=== PATIENT | female | born 1940 | race Caucasian/White ===

== ENCOUNTER 2017-10-09 12:59 | Inpatient (IN) | payer OTHER, MEDICAID ==
[~2017-10-09] VITALS: Ht 157.4 cm; Wt 76.8 kg
--- NOTE | ~2017-10-09 | CON ---
[place], [place] REPORT OF CONSULTATION NAME: KE[facility]A FRIEND [facility] #: [id number] UNIT #: [id number] ROOM: 504 DOCTOR: LUKAS AYON MDDOLORES BIRTHDATE: [birth year] DOS: 10/10/2017 CONSULTATION REQUESTED BY: Hospitalist service. REASON FOR CONSULTATION: Assessment of the shortness of breath. HISTORY OF PRESENT ILLNESS: The patient is a 76-year-old white female patient who came into the office yesterday to be seen for preoperative clearance for some surgery of the joint. The patient slipped off the chair and was noted feeling dizzy, did not have any unconsciousness episode. The patient was noted with oxygen desaturation with saturation about 85%. She was started on oxygen supplementation, EMS called and the patient was sent to the hospital Emergency Room where she has been assessed and subsequently admitted to the hospital for medical management. During course of the assessment in Emergency Room, she also underwent CT scan of the head that excluded any stroke for this patient. CT scan of the abdomen and pelvis done as the patient was complaining of some pain, some upper portion of the abdomen. She has reported symptoms of recently for shortness of breath. The patient has been noted without any sputum expectoration. Denies symptoms of chest pain. Denies symptoms of hemoptysis. The patient does have a cough intermittently which was noted, not completely resolved with intermittent wheezing as well. REVIEW OF SYSTEMS: CONSTITUTIONAL SYMPTOMS: She was noted with symptoms of fatigue and tiredness at this time, which is generalized. EYES: Denies any burning, redness, or tenderness. EAR, NOSE, AND THROAT SYMPTOMS: Denies sore throat, hoarseness, or otalgia, postnasal drainage or epistaxis. CARDIOVASCULAR: Denies angina pain, edema, pain of the lower extremities. GASTROINTESTINAL SYMPTOMS: The patient was noted pain in the upper portion of the abdomen, which are noted severe at this time and noted with palpation in the upper portion of the abdomen most likely in anterior abdominal wall. Denies symptoms of nausea, vomiting, diarrhea, hematemesis, melena, or hematochezia. GENITOURINARY: No dysuria, suprapubic pain, or hematuria. MUSCULOSKELETAL: Denies acute joint pain, redness, or tenderness. Noted history of osteoarthritis and pain in the major joints. CENTRAL NERVOUS SYSTEM: General weakness noted without symptoms of tingling sensation. Remaining systems were reviewed, they were noted all negative. PAST MEDICAL HISTORY: Noted with history of: 1. COPD. 2. Chronic hypoxic respiratory failure with intermittent use of oxygen, supposedly be using oxygen with exertion and sleep. 3. Obstructive sleep apnea disorder. 4. Hearing adherent to the treatment. 5. Atrial fibrillation. 6. Essential hypertension. 7. Hyperlipidemia. [place], [place] REPORT OF CONSULTATION NAME: KE[facility]A FRIEND [facility] #: [id number] UNIT #: [id number] ROOM: [facility] DOCTOR: ZEN WHITAKER MDM BIRTHDATE: [birth year] 8. History of past TIA. 9. Cancer of the breast, right side, which was diagnosed in 1995, in remission. PAST SURGICAL HISTORY: 1. Complete hysterectomy. 2. Right knee arthroscopy. 3. Exploratory laparotomy. 4. Hiatal hernia surgery. 5. Rotator cuff surgery bilaterally. 6. Cardiac catheterization. 7. Left carotid endarterectomy. 8. Right breast lumpectomy in 1995. 9. Therapeutic bronchoscopy done in 2015. SOCIAL HISTORY: The patient is , lives at home. Denies history of alcohol use, illicit drug use. She does not have any occupation related exposure to or inhalation to any dust or chemicals. Smoking noted from age of [age] years old, pack of cigarettes per day that was discontinued in 2014. FAMILY HISTORY: Father at 74 years old with complication of lung cancer. Mother at age of 6969 years old with complication of heart disease. MEDICATIONS: Current administered medications noted as use of Lipitor, aspirin, Protonix, Dulera, albuterol sulfate with nebulizer and Atrovent 3-4 times a day, Metoprolol tartrate 25 mg b.i.d., Plavix 20 mg daily, Pradaxa 150 mg p.o. daily, Lasix 40 mg daily, Ranexa 1000 mg p.o. b.i.d., folic acid 1 mg daily, Wellbutrin 10 mg daily, sulfasalazine 500 mg p.o. daily and other p.r.n. medications. DRUG ALLERGIES: No known drug allergies. PHYSICAL EXAMINATION: GENERAL: This is a 76-year-old female who has been currently noted awake and alert without any acute distress at this time. Height of 5 feet 2 inches, weight of 160 pounds, BMI 29. VITAL SIGNS: Normal temperature, respiratory recorded 18-20, heart rate of 68-70, blood pressure 119/61-128/70. Pulse oxygen saturation noted on 3 liters of nasal cannula 99% saturation, 86% saturation noted in the office. HEENT: Head was atraumatic. Eyes: No icterus. NECK: Supple. CARDIOVASCULAR: S1, S2 is audible without any added sounds. LUNGS: Moderate reduced breath sounds in the lungs were noted bilaterally with moderate expiratory wheezing bilaterally as previously remains unchanged from yesterday. ABDOMEN: Soft. Mild to moderate obesity, tenderness in the upper portion of the abdomen. There was no rebound tenderness. Bowel sounds present. EXTREMITIES: Without any acute edema, clubbing, or cyanosis. MUSCULOSKELETAL: There were no gross deformities. CENTRAL NERVOUS SYSTEM: Cranial nerves 2-12 intact. LABORATORY DATA: CBC yesterday, hemoglobin 11.5, hematocrit 36.2, WBC count [place], [place] REPORT OF CONSULTATION NAME: KEILA FRIEND UNIT #: [id number] ROOM: [facility] DOCTOR[facility] [birth year] normal, platelet count were normal. Lactic acid 1.5 yesterday. PT/PTT yesterday was noted as normal. CMP yesterday, normal BUN and creatinine, CO2 of 39. CT scan of the head without any acute intracranial abnormalities. Mild chronic ischemic degenerative changes noted in the white matter. CBC on 10/10/2017 essentially remains the same as of yesterday. CMP of the patient yesterday noted normal BUN and creatinine. CO2 was noted as 39. Potassium was elevated at 5.9. Chest x-ray, 1 view was reviewed, does not show any acute pulmonary abnormalities. CT scan of the abdomen and pelvis was also done yesterday was reported with a 3-7 mm left renal stone without any hydronephrosis. Chronic diverticulosis without evidence of diverticulitis. No other abnormalities reported. IMPRESSION: 1. The patient who has been currently noted with acute exacerbation of chronic obstructive pulmonary disease very likely with wheezing and chronic hypoxic respiratory failure under any treatment with use of the oxygen regularly. 2. History of atrial fibrillation noted to be well controlled. 3. General weakness, fatigue related previously. 4. Obstructive sleep apnea disorder, nonadherent to the treatment. 5. History of essential hypertension and hyperlipidemia and other medical illnesses. PLAN OF TREATMENT: She has been started on intravenous Solu-Medrol 40 mg q. 8h. The DuoNeb for this patient would be made every 4 hours while awake. Other frequency of the DuoNeb or Atrovent will be discontinued. Antibiotic use will not be necessary. Other supportive therapy, plan of management to be continued as well as ongoing. Additional treatment changes will be made for the patient based on the progression of the illness. Thanks for allowing me to participate in the care of this patient. DOLORES GAYTAN MD CM:CONSTR:REPORT OF CONSULTATION 1317 10/11/17 0513 interface
--- NOTE | ~2017-10-09 | PR ---
[place], [place] PROGRESS NOTE NAME: KEILA FRIEND [facility] #: [id number] UNIT #: [id number] ROOM: 504 DOCTOR: LUKAS AYON MD,DOLORES BIRTHDATE: [birth year] DOS: 10/11/2017 SUBJECTIVE: The patient was still complaining of pain, which is described in the anterior lower portion of the chest as well as in the right upper quadrant. The patient's symptoms of shortness of breath has been improving gradually. Denies symptoms of hemoptysis. She has not been noted any sputum expectoration, small amount of scanty sputum expectoration noted with a cough at times. The patient was continued on corticosteroid, which was started yesterday, resulted in reduction in the wheezing. Denies symptoms of nausea, vomiting or diarrhea. Denies abdominal pain. Denies symptoms of hemoptysis. The patient denies any abnormal skin rashes. Remaining systems were reviewed. They were noted all negative. OBJECTIVE: VITAL SIGNS: In the last 24 hours the patient shows a normal temperature, respiratory rate 20, heart rate 75, blood pressure 120/72. The pulse oxygen saturation recorded at this time on 3 liters nasal cannula 93-94% saturation. HEENT: Examination shows head was atraumatic. Eyes nonicterus. NECK: Supple. CARDIOVASCULAR: S1, S2 is audible. LUNGS: The patient was noted with general reduction in breath sounds. Reduction of wheezing. There were no crackles. ABDOMEN: Soft without any acute tenderness elicited. The patient with rebound tenderness. Bowel sounds present. EXTREMITIES: The patient was noted without any acute edema, clubbing, cyanosis. Visible skin was noted without any lesions or rashes. MUSCULOSKELETAL: Without any acute deformities. LABORATORY DATA: The x-rays of the right chest, which was done yesterday was noted essentially normal study without any evidence of fracture. IMPRESSION: 1. The patient with the current musculoskeletal chest pain, most likely bruising as the patient fell down, appeared to be most likely cause. There was no other abnormality so far noted. 2. The patient with acute exacerbation of chronic obstructive pulmonary disease, responding to treatment with reduction in the wheezing. 3. History of degenerative arthritis as well. 4. The patient with dizziness, which seemed to be resolved. PLAN OF MANAGEMENT: Continuation of the current dose of corticosteroids. Symptomatic pain management. Bronchodilators with oxygen supplementation. Continue previous other home medications as well. Monitor the patient's respiratory status closely. The corticosteroid dose certainly could be decreased to 40 mg b.i.d. since the wheezing has been improving. Usual care with addition of treatment and therapies. [place], [place] PROGRESS NOTE NAME: KEILA FRIEND UNIT #: [id number] ROOM: [facility] DOCTOR: LUKAS AYON MD,DOLORES BIRTHDATE: [birth year] DOLORES GAYTAN MD CM:PNTRANS [id number] DOLORES AYON MD 10/12/17 0027 interface
--- NOTE | ~2017-10-09 | PR ---
[place], [place] PROGRESS NOTE NAME: KEILA FRIEND [facility] #: [id number] UNIT #: [id number] ROOM: 504 DOCTOR: LUKAS AYON MD,DOLORES BIRTHDATE: [birth year] DOS: 10/13/2017 PULMONARY PROGRESS FOLLOWUP SUBJECTIVE: The patient was noted comfortable at this time without any acute distress. The shortness of breath has improved significantly. There were no wheezing reported. There were symptoms of chest pain. Overall, strength for the patient has been improving, still complaining of pain in the right side of the chest possibly related to bruising after a fall of the soft tissue. There were no fractures noted. OBJECTIVE: VITAL SIGNS: Normal temperature, respiratory rate 20, heart rate 54, blood pressure 132/65. Pulse oxygen saturation was 97% saturation on 3 liters cannula. HEENT: No acute change. NECK: Supple. CARDIOVASCULAR: S1, S2 is audible. LUNGS: Noted without any wheezing or crackles present time. ABDOMEN: Soft, nontender. EXTREMITIES: Without any acute edema. IMPRESSION: Stable respiratory status was noted at present time with continued resolution and improvement in acute exacerbation of chronic obstructive pulmonary disease, chronic hypoxic respiratory failure, metabolic alkalosis, and still noted with elevation of CO2, then the patient was given the Diamox yesterday. PLAN OF TREATMENT: The patient could be considered for home discharge with outpatient followup to be planned. Additional treatment changes to be made for the patient based on progression of the illness. DOLORES GAYTAN MD CM:PNTRANS [id number] DOLORES AYON MD 10/13/17 183 interface
--- NOTE | ~2017-10-09 | EKG ---
[place], [place] ELECTROCARDIOGRAM REPORT NAME: KEILA FRIEND UNIT #: [id number] ROOM: 504 DOCTOR: DANIELA OCAMPO MD BIRTHDATE: [birth year] DOS: 10/09/2017 TIME: 1333 hours. FINDINGS: 1. Atrial fibrillation with ventricular rate of 71 beats per minute. 2. An abnormal ECG. 3. No previous tracing is available for comparison. DANIELA OCAMPO MD CM:EKGRPT:ELECTROCARDIOGRAM REPORT [id number] [id number] DANIELA OCAMPO MD
--- NOTE | ~2017-10-09 | PR ---
[place], [place] PROGRESS NOTE [id number] UNIT #: [id number] ROOM: 504 DOCTOR: LUKAS AYON MD,DOLORES BIRTHDATE: [birth year] DOS: 10/12/2017 SUBJECTIVE: She has been noted comfortable at this time, continued to show reduction and improvement of the respiratory symptoms of chest pain which has ____ chest secondary to bruising after a fall for this patient was improving, but not completely improved. The patient's respiratory symptoms of coughing, wheezing noted. Symptoms have been progressively resolving. OBJECTIVE: VITAL SIGNS: This morning, normal temperature, respiratory rate 18, heart rate 53, blood pressure ____. Pulse oxygen saturation of the patient recorded as 95% saturation, 3 liters cannula. HEENT: No acute change. NECK: Supple. CARDIOVASCULAR: S1, S2 audible. LUNGS: Noted without any wheezing or crackles. Breaths are noted mildly decreased bilaterally. There were no crackles. ABDOMEN: Soft, nontender with obesity. EXTREMITIES: Without any acute edema. LABORATORY DATA: BMP this morning was noted normal BUN and creatinine. CO2 43. IMPRESSION: 1. The patient with resolving acute exacerbation of chronic obstructive pulmonary disease, acute tracheobronchitis. 2. Metabolic alkalosis was also noted secondary to chronic hypercarbia. PLAN OF TREATMENT: Low dose of Diamox 250 mg p.o. b.i.d. has been ordered. Continue current dose of corticosteroids. Continue bronchodilators, other treatment plan of management. Possible discharge home for the patient could be considered in the morning, hopefully on oral medication including pain management. DOLORES GAYTAN MD CM:PNTRANS [id number] DOLORES AYON MD 10/13/17 0123 interface
--- NOTE | ~2017-10-09 | CON ---
[place], [place] REPORT OF CONSULTATION NAME: KEILA FRIEND [facility] #: [id number] UNIT #: [id number] ROOM: 504 DOCTOR: LAZARA QUIROZ MDHISH BIRTHDATE: [birth year] DOS: 10/11/2017 HISTORY OF PRESENT ILLNESS: The patient is a 76-year-old gentleman who apparently came in with a preop clearance from surgery of the joint. The patient slipped off the chair and was noted to be feeling dizzy and ____ to the left upper extremity. During the course of assessment, she also underwent CT scan of the head that exclude any stroke for this patient. CT scan of the abdomen and pelvis done as the patient was complaining of some pain in some upper portion of the abdomen. She has reported symptoms of recent shortness of breath and denies symptoms of chest discomfort. The patient had a stress test and an echocardiogram done by Dr. Segura recently. REVIEW OF SYSTEMS: CONSTITUTIONAL: The patient not to be fatigue and tiredness. HEENT: Denies any burning, adnexal tenderness. CARDIOVASCULAR: No angina. RESPIRATORY: Shortness of breath. GASTROINTESTINAL: No nausea, no vomiting. GENITOURINARY: No dysuria, suprapubic or hematuria. MUSCULOSKELETAL: Denies acute joint pain, redness, or tenderness. PAST MEDICAL HISTORY: Includes COPD, obstructive sleep apnea, essential hypertension, atrial fibrillation, hyperlipidemia, history of TIA. PAST SURGICAL HISTORY: Cardiac catheterization, knee arthroscopy, ____ carotid endarterectomy, breast lumpectomy. FAMILY HISTORY: Positive for coronary artery disease. MEDICATIONS: Atrovent, Paradaxa, Plavix, metoprolol, Ranexa, Wellbutrin, sulfasalazine. DRUG ALLERGIES: None. PHYSICAL EXAMINATION: VITAL SIGNS: Blood pressure is 110/70. GENERAL: The patient has atrial fibrillation, controlled ventricular response. HEENT: Unremarkable. LUNGS: Diminished air entry bilaterally. HEART: Sounds are irregularly irregular. ABDOMEN: Soft, nontender. NEUROLOGICAL: Stable. Chest x-ray was reviewed. CT scan also reviewed. IMPRESSION: The patient has known history of coronary artery disease, apparently recent stress test done by Dr. Segura and also an echocardiogram. RECOMMENDATIONS: We will review the echocardiogram and a stress test done in his office, will try to see that as Dr. Segura has done all the workup. No [place], [place] REPORT OF CONSULTATION NAME: KEILA FRIEND UNIT #: [id number] ROOM: 504 DOCTOR: GABRIELLA HERNANDEZ,VIPIN BIRTHDATE: [birth year] reason to do anything and we will follow up. VIPIN QUIROZ MD CM:CONSTR:REPORT OF CONSULTATION 1125 10/11/17 2316 interface
[2017-10-09 13:00] VITALS: BP 124/55
[2017-10-09 13:32] LABS: BILIRUBIN NEGATIVE (NEGATIVE); BLOOD TRACE-INTACT (NEGATIVE); CLARITY CLEAR (CLEAR); COLOR YELLOW (YELLOW); GLUCOSE NEGATIVE (NEGATIVE); KETONE NEGATIVE (NEGATIVE); LEUKO ESTERASE NEGATIVE (NEGATIVE); NITRITE NEGATIVE (NEGATIVE); PH 8.5 (5.0-9.0); UROBILINOGEN 0.2 E.U./dl (0.2-1.0)
[2017-10-09 13:36] LABS: BASO # 0.1 10*3/uL (0.0-0.1); BASO % 0.7 % (0.0-1.0); EOS # 0.4 10*3/uL (0.0-0.4); EOS % 6.4 % (1.0-4.0); HEMATOCRIT 36.2 % (37.0-47.0); HEMOGLOBIN 11.5 g/dl (12.0-16.0); LYMPH # 1.7 10*3/uL (1.3-4.4); LYMPH % 24.5 % (27.0-41.0); MEAN CELL VOLUME 92.1 fl (81.0-99.0); MEAN CORPUSCULAR HGB 29.3 pg (27.0-31.0); MEAN CORPUSCULAR HGB CONC 31.8 g/dl (33.0-37.0); MEAN PLATELET VOLUME 9.3 fl (9.6-12.3); MONO % 13.9 % (3.0-9.0); NEUT # 3.7 10*3/uL (2.3-7.9); NEUT % 54.1 % (47.0-73.0); PLATELET COUNT AUTOMATED 289 10*3/uL (130-400); RED BLOOD COUNT 3.93 10*6/uL (4.10-5.10); WHITE BLOOD COUNT 6.9 10*3/uL (4.8-10.8)
[2017-10-09 13:43] LABS: WBC 0-2 wbc/hpf (0-5)
[2017-10-09 13:46] LABS: ACT PARTIAL THROMBO TIME 25.7 SECONDS (20.8-31.5)
[2017-10-09 13:54] LABS: ALKALINE PHOSPHATASE 83 U/L (45-117); BUN 21 mg/dl (7-24); CHLORIDE 98 mmol/L (98-107); CREATININE 0.96 mg/dL (0.55-1.02); LIPASE 150 U/L (73-393); POTASSIUM 4.4 mmol/L (3.5-5.1); SGOT/AST 17 IU/L (3-35); SGPT/ALT 17 U/L (12-78); SODIUM 141 mmol/L (136-145); TOTAL PROTEIN 6.5 gm/dL (6.4-8.2)
[2017-10-09 13:55] LABS: TROPONIN I < 0.015 ng/ml (<0.045)
[2017-10-09 14:15] VITALS: BP 116/50
[2017-10-09 15:09] VITALS: BP 125/57
[2017-10-09 16:02] VITALS: BP 128/70
[2017-10-09 16:40] VITALS: BP 141/72
[2017-10-09] MEDS ORDERED: XANAX0.5 MG PO (17:45)
[2017-10-09] MEDS ORDERED: NATURE'S BLEND F1 MG PO (17:46)
[2017-10-09] MEDS ORDERED: SULFASALAZINE500 MG PO (17:46)
[2017-10-09] MEDS ORDERED: PROTONIX20 MG PO (17:47)
[2017-10-09] MEDS ORDERED: RANEXA1000 M1 PO (17:47)
[2017-10-09] MEDS ORDERED: FLONASE ALLERG9.9 ML NAS (17:48)
[2017-10-09] MEDS ORDERED: LASIX40 MG PO (17:48)
[2017-10-09] MEDS ORDERED: K-TAB20 MEQ PO (17:49)
[2017-10-09] MEDS ORDERED: PRADAXA150 MG PO (17:49)
[2017-10-09] MEDS ORDERED: BUSPIRONE10 MG PO (17:50)
[2017-10-09] MEDS ORDERED: LOPRESSOR25 MG PO (17:50)
[2017-10-09] MEDS ORDERED: PLAVIX75 M1 PO (17:50)
[2017-10-09] MEDS ORDERED: CHOLESTYRAMINE P4 GM PO (17:52)
[2017-10-09 20:00] VITALS: BP 115/50
[2017-10-10] VITALS: BP 103/50
[2017-10-10 06:50] LABS: BASO # 0.1 10*3/uL (0.0-0.1); BASO % 0.7 % (0.0-1.0); EOS # 0.7 10*3/uL (0.0-0.4); EOS % 9.5 % (1.0-4.0); HEMATOCRIT 36.7 % (37.0-47.0); HEMOGLOBIN 11.3 g/dl (12.0-16.0); LYMPH # 1.5 10*3/uL (1.3-4.4); LYMPH % 22.2 % (27.0-41.0); MEAN CELL VOLUME 94.6 fl (81.0-99.0); MEAN CORPUSCULAR HGB 29.1 pg (27.0-31.0); MEAN CORPUSCULAR HGB CONC 30.8 g/dl (33.0-37.0); MEAN PLATELET VOLUME 9.5 fl (9.6-12.3); NEUT # 3.6 10*3/uL (2.3-7.9); NEUT % 52.2 % (47.0-73.0); PLATELET COUNT AUTOMATED 277 10*3/uL (130-400); RED BLOOD COUNT 3.88 10*6/uL (4.10-5.10); WHITE BLOOD COUNT 6.9 10*3/uL (4.8-10.8)
[2017-10-10 06:50] LABS: BUN 17 mg/dl (7-24); CHLORIDE 100 mmol/L (98-107)
[2017-10-10 07:00] LABS: ALKALINE PHOSPHATASE 84 U/L (45-117); CHOLESTEROL 142 mg/dL (<200); CREATININE 0.89 mg/dL (0.55-1.02); FREE T4 0.84 ng/dl (0.76-1.46); HDL CHOLESTEROL 42 mg/dl (40-60); LDL CHOLESTEROL 83 mg/dL (9-159); PHOSPHOROUS 4.3 mg/dL (2.5-4.9); SGOT/AST 19 IU/L (3-35); SGPT/ALT 16 U/L (12-78); TOTAL PROTEIN 6.4 gm/dL (6.4-8.2); TRIGLYCERIDES 86 mg/dl (<150); VLDL CHOLESTEROL 17 mg/dL (6-40)
[2017-10-10 07:36] LABS: SODIUM 142 mmol/L (136-145)
[2017-10-10 07:37] LABS: POTASSIUM 5.9 mmol/L (3.5-5.1)
[2017-10-10 07:52] LABS: VITAMIN D, 25-HYDROXY 30.5 ng/mL (30-100)
[2017-10-10 08:00] VITALS: BP 119/61
[2017-10-10] MEDS ORDERED: ASPIRIN ADULT L81 M1 PO (11:23)
[2017-10-10] MEDS ORDERED: VITAMIN D31000 UNI1 PO (11:24)
[2017-10-10] MEDS ORDERED: NITROSTAT0.4 MG SL (11:27)
[2017-10-10] MEDS ORDERED: ADVAIR 250/501 EA INH (11:29)
[2017-10-10] MEDS ORDERED: CRESTOR40 M1 PO (11:32)
[2017-10-10] MEDS ORDERED: Ventolin 02.5 MG/3 M INH (11:32)
[2017-10-10] MEDS ORDERED: PROAIR HFA8.5 GM INH (11:33)
[2017-10-10] MEDS ORDERED: IMODIUM A-D2 M2 PO (11:34)
[2017-10-10] MEDS ORDERED: PROZAC40 M1 PO (11:35)
[2017-10-10] MEDS ORDERED: SPIRIVA -- 3018 MCG INH (11:35)
[2017-10-10 12:00] VITALS: BP 125/70
[2017-10-10 16:00] VITALS: BP 84/44
[2017-10-10 20:00] VITALS: BP 122/60
[2017-10-11] VITALS: BP 120/58
[2017-10-11 08:00] VITALS: BP 120/68
[2017-10-11 09:24] LABS: BUN 19 mg/dl (7-24); CHLORIDE 97 mmol/L (98-107); CREATININE 0.83 mg/dL (0.55-1.02); SODIUM 140 mmol/L (136-145)
[2017-10-11 09:25] LABS: POTASSIUM 4.6 mmol/L (3.5-5.1)
[2017-10-11 12:00] VITALS: BP 128/72
[2017-10-11 16:00] VITALS: BP 99/43
[2017-10-11 20:00] VITALS: BP 126/66
[2017-10-12] VITALS: BP 100/65
[2017-10-12 07:15] LABS: BUN 17 mg/dl (7-24); CHLORIDE 95 mmol/L (98-107); CREATININE 0.69 mg/dL (0.55-1.02); POTASSIUM 4.1 mmol/L (3.5-5.1); SODIUM 140 mmol/L (136-145)
[2017-10-12 08:00] VITALS: BP 121/93
[2017-10-12 12:00] VITALS: BP 100/51
[2017-10-12 16:00] VITALS: BP 112/60
[2017-10-12 20:00] VITALS: BP 130/78
[2017-10-13] VITALS: BP 124/69
[2017-10-13 08:00] VITALS: BP 134/70
[2017-10-13 12:00] VITALS: BP 133/65
[2017-10-13] MEDS ORDERED: ACETAZOLAMIDE250 MG PO (12:21)
[2017-10-13] MEDS ORDERED: PREDNISONE10 MG PO (12:21)
== END 2017-10-13 15:00 | disposition home or self-care (01) | DRG 190 ==
LOC: ED 12:59 → EDHOLD 15:16 → 5E 15:16
PROVIDERS: Emergency Medicine; Registered Nurse; Student in an Organized Health Care Education/Training Program
DX: J44.0 Chronic obstructive pulmonary disease with (acute) lower respiratory infection (principal); J18.9 Pneumonia, unspecified organism; E44.0 Moderate protein-calorie malnutrition; J96.12 Chronic respiratory failure with hypercapnia; E87.3 Alkalosis; I48.1 Persistent atrial fibrillation; R55 Syncope and collapse; J44.1 Chronic obstructive pulmonary disease with (acute) exacerbation; I25.119 Atherosclerotic heart disease of native coronary artery with unspecified angina pectoris; E83.41 Hypermagnesemia; N20.0 Calculus of kidney; D64.9 Anemia, unspecified; L40.9 Psoriasis, unspecified; Z96.651 Presence of right artificial knee joint; G47.33 Obstructive sleep apnea (adult) (pediatric); K57.90 Diverticulosis of intestine, part unspecified, without perforation or abscess without bleeding; R07.89 Other chest pain; M19.90 Unspecified osteoarthritis, unspecified site; E78.5 Hyperlipidemia, unspecified; Z86.73 Personal history of transient ischemic attack (TIA), and cerebral infarction without residual deficits; Z99.81 Dependence on supplemental oxygen; Z85.3 Personal history of malignant neoplasm of breast; Z90.11 Acquired absence of right breast and nipple; Z95.5 Presence of coronary angioplasty implant and graft; Z90.49 Acquired absence of other specified parts of digestive tract; Z90.710 Acquired absence of both cervix and uterus; Z71.6 Tobacco abuse counseling; Z87.891 Personal history of nicotine dependence; Z80.1 Family history of malignant neoplasm of trachea, bronchus and lung; Z82.49 Family history of ischemic heart disease and other diseases of the circulatory system; Z79.899 Other long term (current) drug therapy; Z68.29 Body mass index [BMI] 29.0-29.9, adult